=== PATIENT | female | born 1980 | race Caucasian/White ===

== ENCOUNTER 2018-10-29 19:06 | Emergency (ER) | payer SELFPAY ==
[2018-10-29] MEDS ORDERED: Diphtheria,Pertussis(Acell),Tetanus Vaccine 0.5 ML SDV IM ONE (19:45)
[2018-10-29] MEDS ORDERED: Acetaminophen 500 MG Tab PO ONE (19:46)
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
[2018-10-29] MEDS ORDERED: Lidocaine 2% 20 ML MDV INJECT ONE (20:16)
--- NOTE | 2018-10-29 20:43 | CRLCR ---
Indication: Injury Technique: Three views right 3rd and 4th fingers Comparison: None Findings: Bones: Alignment is normal. No fractures or bone lesions. Joint spaces: Unremarkable. Soft tissues: Unremarkable. Impression: Negative. Dictated by Mary Wadsworth MD @ Oct 29 2018 8:31PM Signed by Dr. Mary Wadsworth @ Oct 29 2018 8:42PM
[2018-10-29] MEDS ORDERED: Cephalexin 250 MG Cap PO ONE (20:53)
[2018-10-29] MEDS ORDERED: Bacitracin Oint 1 GM U/D Packet TOP ONE (20:54)
== END 2018-10-29 21:17 | disposition home or self-care (01) ==
LOC: JP.ED 19:06
DX: S61.214A Laceration without foreign body of right ring finger without damage to nail, initial encounter (principal); S61.212A Laceration without foreign body of right middle finger without damage to nail, initial encounter; S66.901A Unspecified injury of unspecified muscle, fascia and tendon at wrist and hand level, right hand, initial encounter; Z23 Encounter for immunization; Z88.0 Allergy status to penicillin; W22.8XXA Striking against or struck by other objects, initial encounter
CPT/HCPCS: 12002; 73140; 90471; 90715; 99283; A9270; J2001

== ENCOUNTER 2021-07-01 19:29 | Emergency (ER) | payer SELFPAY ==
[2021-07-01] MEDS ORDERED: Lidocaine 1% 5 ML VIAL INJECT ONE (19:32)
== END 2021-07-01 20:08 | disposition home or self-care (01) ==
LOC: JP.ED 19:29
DX: S00.05XA Superficial foreign body of scalp, initial encounter (principal); Z88.0 Allergy status to penicillin; Z72.0 Tobacco use; W45.8XXA Other foreign body or object entering through skin, initial encounter
CPT/HCPCS: 12001; 99281; 99283-25